=== PATIENT | male | born 1975 | race African-American/Black ===

== ENCOUNTER 2023-10-04 21:08 | Inpatient (IN) | payer SELFPAY ==
[~2023-10-04] VITALS: Ht 208.3 cm; Wt 127.0 kg
[2023-10-04 21:52] LABS: BASOPHILS ABSOLUTE AUTO 0.04 K/mm3 (0.00-0.23); BASOPHILS PERCENT AUTO 1 % (0-2); EOSINOPHILS PERCENT AUTO 3 % (0-6); Hemoglobin 13.1 g/dL (13.5-17.5); IMMATURE GRAN ABSOLUTE AUTO 0.01 K/mm3 (0.00-0.10); IMMATURE GRAN PERCENT AUTO 0 % (0-1); LYMPHOCYTES ABSOLUTE AUTO 2.02 K/mm3 (0.84-5.20); LYMPHOCYTES PERCENT AUTO 25 % (21-46); MONOCYTES ABSOLUTE AUTO 0.86 K/mm3 (0.16-1.47); MONOCYTES PERCENT AUTO 11 % (4-13); Mean Corpuscular HGB 29.2 pg (26.0-34.0); Mean Corpuscular HGB Conc 34.5 g/dL (31.5-36.5); Mean Corpuscular Volume 85 fL (80-100); Mean Platelet Volume 10.8 fL (9.1-12.4); NEUTROPHILS ABSOLUTE AUTO 4.83 K/mm3 (1.96-9.15); NEUTROPHILS PERCENT AUTO 61 % (41-73); Platelet Count 287 K/mm3 (150-400); RDW Coefficient Variation 11.9 % (11.7-14.2); Red Blood Cell Count 4.49 M/mm3 (4.30-5.90); White Blood Cell Count 7.96 K/mm3 (4.00-11.30)
[2023-10-04 22:12] LABS: Albumin, Blood 3.3 g/dL (3.4-5.0); Albumin/Globulin Ratio 0.6 (0.8-1.8); Bilirubin, Total 0.5 mg/dL (0.1-1.0); Bun/Creatinine Ratio 19.7 (12.0-20.0); Calcium, Blood 9.2 mg/dL (8.5-10.1); Creatinine, Blood 0.76 mg/dL (0.60-1.20); Globulin, Blood 5.3 g/dL (2.2-4.0); Potassium, Blood 4.7 mmol/L (3.5-5.5); Total Protein, Blood 8.6 g/dL (6.4-8.2)
[2023-10-04 22:15] LABS: Source, Urine Clean Catch
[2023-10-04] MEDS ORDERED: GLIP5 PO (22:27)
[2023-10-04 22:48] LABS: Base Excess Venous 3.1 mmol/L; Bicarbonate Venous 26.7 mmol/L (24.0-30.0)
[2023-10-04 23:15] LABS: Bilirubin, Urine Neg (Neg); Blood, Urine Neg (Neg); Glucose Qualitative, Urine 4+ (Neg); Ketones, Urine Neg (Neg); Leukocyte Esterase, Urine Neg (Neg); Nitrite, Urine Neg (Neg); Protein, Urine Neg (Neg); Urobilinogen, Urine NORM (Normal)
[2023-10-04 23:22] LABS: Appearance, Urine Clear (Clear); Color, Urine Pale Yellow (P-Yellow)
[2023-10-04 23:29] LABS: U Amphetamine Screen DETECTED; U Barbituate Screen Not Detected; U Benzodiazapine Screen Not Detected; U Buprenorphine Screen Not Detected; U Cannabinoids Screen Not Detected; U Cocaine Screen DETECTED; U Methadone Screen Not Detected; U Methamphetamine Screen DETECTED; U Opiates Screen Not Detected; U Oxycodone Screen Not Detected; U Phencyclidine Screen Not Detected; U Propoxyphene Screen Not Detected
[2023-10-04 23:35] LABS: International Normalized Ratio 1.02; Prothrombin Time Results 10.7 Sec (9.7-11.5)
[2023-10-04 23:47] LABS: Salicylate <1.7 mg/dL (2.8-20.0)
[2023-10-04 23:56] LABS: Thyroid Stimulating Hormone 1.47 uIU/mL (0.360-4.800)
[2023-10-04 23:59] LABS: Phosphorus, Blood 3.3 mg/dL (2.5-4.9)
[2023-10-05 00:04] LABS: Acetaminophen, Random <2.0 ug/mL (10.0-30.0)
[2023-10-05 00:27] LABS: Ethanol (Alcohol), Blood, Med <3 mg/dL
[2023-10-05 03:11] VITALS: BP 178/83
--- NOTE | 2023-10-05 04:15 | NUR ---
ADMIT NOTE/SHIFT SUMMARY; PT ARRIVES FROM ED VIA GURNEY AND IS ABLE TO TRANSFER FROM THE GURNEY TO THE HOSPITAL BED INDEPENDENTLY. THE PT IS AXO X4, BUT VERY SLEEPY. THE PT HAS 2 DIABETIC ULCERS TO BILAT FEET, PICTURES IN CHART. THE PT DENIES ANY SOB, CHEST PAIN/PRESSURE, N/V OR PAIN. THE PT IS ABLE TO REST INTO BED COMFORTABLY. CURRENTLY THE PT IS RESTING IN BED WITH THE BED IN THE LOWEST POSITION AND THE CALL LIGHT AT BEDSIDE. FIRE EDUCATION PROVIDED AND IGNITION RISK ASSESSED, THE PT DENIES HAVING ANY IGNITION SOURCES IN POSSESSION.
[2023-10-05 05:55] VITALS: BP 152/88
[2023-10-05 07:45] VITALS: BP 136/79
--- NOTE | 2023-10-05 14:32 | NUR ---
report received verified, walked in room introduced myself but pt remained with eyes closed, was just speaking with so pt wasnt sleeping just didnt want to respond to me. and arguing about leaving with a lot of screaming audible down the [place]ñez. i entered room shortly after left and pt stated he was leaving because we were not feeding him. After enc pt to stay he refused and signed hospital AMA form [facility] unit charge explained to pt AMA form and pt signed anyways. IV was dc,ed pt took belonging and walked out with son without incident.
== END 2023-10-05 11:47 | disposition left against medical advice (07) | DRG 637 ==
LOC: ER 21:08 → MEDS 10-05 02:04
PROVIDERS: Emergency Medicine; Physician Assistant; ADMIT Internal Medicine
DX: E11.621 Type 2 diabetes mellitus with foot ulcer (principal); G92.8 Other toxic encephalopathy; I10 Essential (primary) hypertension; F17.210 Nicotine dependence, cigarettes, uncomplicated; E11.65 Type 2 diabetes mellitus with hyperglycemia; F15.10 Other stimulant abuse, uncomplicated; L97.519 Non-pressure chronic ulcer of other part of right foot with unspecified severity; L97.529 Non-pressure chronic ulcer of other part of left foot with unspecified severity; F14.10 Cocaine abuse, uncomplicated; Z91.148 Patient's other noncompliance with medication regimen for other reason; Z79.899 Other long term (current) drug therapy
CPT/HCPCS: 36415; 71046; 73620; 80053; 81003; 82010; 82140; 82803; 82947; 83036; 83605; 83735; 84100; 84443; 84484; 85025; 85610; 85730; 93005; 93010; 96361; 96374; 99285-25; G0480; J0360; J0692; J1815; J2543; J7030